=== PATIENT | female | born 1985 | race Caucasian/White ===

== ENCOUNTER → 2018-11-06 | Outpatient (CLI) | payer OTHER ==
--- NOTE | 2018-11-06 14:44 | KCIC ---
EXAM: MRI left shoulder DATE: 11/06/2018 2:00 PM COMPARISON: None INDICATION: Left shoulder pain for several months TECHNIQUE: Multiplanar, multisequence MRI of the left shoulder was performed without contrast. FINDINGS: AC joint is congruent with minimal AC joint degenerative change. Subacromial subdeltoid bursal edema likely bursitis. No significant glenohumeral joint effusion. No discrete rotator cuff tear is identified although there is mild increased signal within the distal supraspinatus and infraspinatus tendons consistent with mild tendinosis. Focus of T1/T2 hypointense signal with mild edema within the distal supraspinous tendon is suspicious for calcific tendinitis and can be correlated with radiographs. Rotator cuff muscle signal and bulk is normal. Minimal cystic change at the infraspinatus attachment. The intra-articular long head biceps tendon is seen within the bicipital groove. Intra-articular segment is not well delineated. Evaluation for labral tear is limited on this nonarthrographic study. Within these constraints no discrete labral tear is identified. No evidence for fracture or AVN. Survey evaluation of the cartilage intact. IMPRESSION: 1. T1/T2 hypointense focus within the distal supraspinatus tendon with mild associated edema may represent calcific tendinitis and can be correlated with radiographs. This may be amenable to percutaneous barbotage/lavage by ultrasound. 2. Mild subacromial-subdeltoid bursal edema, bursitis. 3. No discrete rotator cuff tear is identified. Electronically signed by: Gio Graves MD (11/06/2018 2:40 PM) [id number]
== END | disposition home or self-care (01) ==
LOC: KCIC MRI 13:15
PROVIDERS: ATTEND Registered Nurse
DX: M75.52 Bursitis of left shoulder (principal)
CPT/HCPCS: 73221